=== PATIENT | female | born 1970 | race Caucasian/White ===

== ENCOUNTER 2023-07-11 07:32 | Outpatient (CLI) | payer BC, SELFPAY | END 2023-07-11 07:33 | disposition home or self-care (01) | PROVIDERS: PCP Family Medicine; Visit Provider Family Medicine | DX: E66.3 Overweight (principal); Z13.220 Encounter for screening for lipoid disorders; Z11.59 Encounter for screening for other viral diseases | CPT/HCPCS: 80053; 80061; 84443; 86803 ==

== ENCOUNTER 2023-07-13 09:26 | Outpatient (CLI) | payer BC, SELFPAY | END 2023-07-13 09:27 | disposition home or self-care (01) | LOC: FRMREF 09:27 | PROVIDERS: PCP Family Medicine; Visit Provider Dermatology | DX: R21 Rash and other nonspecific skin eruption (principal) | CPT/HCPCS: 87070; 87186 ==

== ENCOUNTER 2023-11-17 17:29 | Emergency (ER) | payer BC, SELFPAY ==
[2023-11-17 17:36] VITALS: BP 128/83; PULSE 83; RESP 18; TEMP 36; O2SAT 99; BMI 37.6
--- NOTE | 2023-11-17 17:53 | XR_ITS ---
Patient: DEBRA PATEL Facility:?[facility] Patient ID:?[id number] Site Patient ID:?[id number]. Site :?[id number] Study:?XRay-Chest 2 VIEW-11/17/2023 6:30:45 PM Ordering Physician:MARICRUZ Final Report: INDICATION: CHEST PAIN TECHNIQUE: Chest 2 views. COMPARISON: None. FINDINGS: Cardiovascular and mediastinum: Heart size and vasculature are normal in caliber and appearance. Mediastinum is within normal limits. Lungs and pleural spaces: Lungs are clear. No sign of infiltrate or mass. No sign of pleural effusion. No pneumothorax. Bones and soft tissues: No significant findings. IMPRESSION: Unremarkable chest. Dictated by: Chris Gaston MD @ 11/17/2023 19:13:14 Signed by:Mukesh Gaston MD @11/17/2023 7:13:14 PM (Electronic Signature)
--- NOTE | 2023-11-17 17:53 | CT_ITS ---
Patient: DEBRA PATEL Facility:?[facility] Patient ID:?[id number] Site Patient ID:?[id number]. Site :?[id number] Study:?CT-Head W/O-11/17/2023 6:28:50 PM Ordering Physician:MARICRUZ Final Report: INDICATION: Headaches TECHNIQUE: Non-contrast CT of the head is submitted. No comparisons. FINDINGS: The ventricles, sulci and gyri are of normal size, shape and contour. Midline structures are centrally located. No convincing evidence of intra- or extra- axial fluid collections. Mild mucosal thickening within the right maxillary sinus. IMPRESSION: 1. No radiographic evidence of acute intracranial abnormalities. Please note that all CT scans at this facility use dose modulation, iterative reconstruction, and/or weight-based dosing when appropriate to reduce radiation dose to as low as reasonably achievable. Dictated by Darwin Rodriguez MD @ 11/17/2023 6:48:43 PM Signed by:?Darwin Rodriguez MD @11/17/2023 6:48:43 PM (Electronic Signature)
[2023-11-17] MEDS: KETOROLAC 15 MG/ML inj IVP (18:25)
[2023-11-17 18:30] LABS: Basophils Absolute Auto 0.03 K/uL (0.00-0.30); Basophils Percent Auto 0.4 % (0.0-3.0); Eosinophils Absolute Auto 0.28 K/uL (0.00-0.50); Eosinophils Percent Auto 3.5 % (0.0-7.0); Hematocrit 41.5 % (33.0-51.0); Hemoglobin* 13.5 gm/dL (12.0-16.0); Immature Granulocytes Abs Auto 0.01 K/uL (0.00-0.30); Immature Granulocytes Pct Auto 0.1 %; Lymphocytes Percent Auto 44.7 % (20-44); Mean Corpuscular HGB Conc 33 gm/dL (32-36); Mean Corpuscular Hemoglobin 30 pg (26-34); Mean Corpuscular Volume 92 fL (80-100); Monocytes Percent Auto 5.1 % (0.0-11.0); Neutrophils Percent Auto 46.2 % (42.0-72.0); Platelet Count* 364 K/uL (140-440); RDW Coefficient of Variation % 13.8 % (11.5-15.5); Red Blood Count 4.51 m/uL (4.00-5.20); White Blood Count* 8.01 K/uL (4.50-11.00)
[2023-11-17 18:32] LABS: Slide Review Reflex No
[2023-11-17 18:41] LABS: Chloride* 105 mmol/L (96-114)
[2023-11-17 18:42] LABS: Albumin* 4.6 g/dL (3.3-5.0); Sodium* 139 mmol/L (135-149)
[2023-11-17 18:44] LABS: Creatinine* 0.8 mg/dL (0.5-1.5); Est. Creatinine Clearance* 78.18; Estimated Glomerular Filt Rate 88 ml/min
[2023-11-17 18:45] LABS: Alanine Aminotransferase* 43 U/L (4-35); Alkaline Phosphatase* 106 U/L (40-150); Anion Gap 8 mEq/L (7-15); Aspartate Amino Transferase* 35 U/L (12-35); Bilirubin Direct* 0.2 mg/dL (0.0-0.5); Bilirubin Total* 0.3 mg/dL (0.1-1.5); Blood Urea Nitrogen* 16 mg/dL (7-30); Carbon Dioxide* 26 mmol/L (20-32); D Dimer Quantitative* 0.61 ug/ml (0.00-0.50); Glucose* 95 mg/dL (60-115); Total Protein* 7.6 g/dL (6.0-8.3)
[2023-11-17 18:46] LABS: Calcium* 9.7 mg/dL (8.4-10.6)
--- NOTE | 2023-11-17 18:48 | ED_ITS ---
HPI - General Adult General Chief complaint: Chest Pain Stated complaint: Chest pains, headaches Time Seen by Provider: 11/17/23 17:34 Source: patient, RN notes reviewed and old records reviewed Mode of arrival: ambulatory Limitations: no limitations History of Present Illness HPI narrative: Patient is a 53-year-old woman who presents for evaluation primarily of chest pain but also of headaches. She has had chest pain she says for 3 days straight, it waxes and wanes in intensity but has never been completely gone. It does migrate from 1 side of the chest to the other, sometimes upper chest, sometimes lower chest. She has not found anything that relieves it nor anything that makes it worse. Sometimes it hurts to take a deep breath but not always. Sometimes she feels short of breath for moment or 2 but has not felt consistently short of breath. She denies fevers or cough. She does feel like her legs are been a little swollen. She is not on any hormone replacement, did have a hysterectomy at the end of 2021. Her dad has a history of heart surgery and heart attacks. She has no personal history of heart disease, she says years ago she had chest pain and was diagnosed with anxiety. She has been having headaches for the past week and a half for so. She says she has headaches most days although not all day and not every day. They go away with ibuprofen, sometimes she does not even notice that she has a headache because she is busy but then when she stops doing what she is doing she will notice that she has a headache. Headaches as well have been migratory, sometimes temporal, sometimes frontal, sometimes occipital. Not associated with any nausea or vomiting, they do not limit her activities. She sometimes wakes up with a headache but not all the time. No neurologic changes. Saw her primary doctor week ago for headaches, recommendation was made for ibuprofen and follow up if she continued to have problems. She had called clinic today to make a follow-up appointment but was told to come to the ER instead because of the chest pain. She does smoke, drinks occasionally. Denies any drug use. Notes a prior history of depression and anxiety but feels these have been well controlled for the past 5 years or so, does not take any medications for those. Related Data Home Medications Medication Instructions Recorded Confirmed timolol maleate 0.5 % eye drops 1 drp ophthalmic (eye) DAILY 11/10/23 11/10/23 Previous Rx's Medication Instructions Recorded ibuprofen 800 mg tablet 800 mg PO .every 6-8 hrs PRN pain 11/10/23 #60 tabs ropinirole 0.25 mg tablet 0.25 mg PO QHS #30 tabs 11/10/23 Allergies Allergy/AdvReac Type Severity Reaction Status Date / Time Cephalosporins Allergy Unknown Verified 11/10/23 15:11 levofloxacin [From Levaquin] Allergy Unknown Verified 11/10/23 15:11 erythromycin base Allergy Verified 11/10/23 15:11 Penicillins Allergy Verified 11/10/23 15:11 Review of Systems Status of ROS: Reports: 10 or more systems reviewed and unremarkable except as noted in History and below [facility] Medical History Yeast dermatitis ?B37.2 - Candidiasis of skin and nail (ICD-10) Acute maxillary sinusitis ?J01.00 - Acute maxillary sinusitis, unspecified (ICD-10) Family History Father Coronary artery disease Maternal Grandfather Prostate cancer Heart disease Aunt Breast cancer Uncle Heart disease Social History Smoking Status: Current every day smoker How often do you have a drink containing alcohol: monthly or less AUDIT-C Alcohol total score: 1 Non-prescribed substance use: denies use Exam Narrative: Exam Narrative: Vital signs as noted above. In general, an alert, well-appearing patient. Breathing comfortably. Head: Normocephalic, atraumatic. Eyes: Pupils are equal reactive. Extraocular movements are full. Conjunctivae are normal. ENT: Mucous membranes are moist. Throat is normal. No temporal tenderness. Neck: Supple without lymphadenopathy. No meningeal signs. Heart: Regular rate and rhythm. No murmur or rub. Lungs: Clear bilaterally. No increased work of breathing, crackles or wheezes. Abdomen: Soft and nontender. Extremities: Well perfused. Trace pretibial edema bilaterally. No calf tenderness. Pulses intact. Neurologic: Patient is alert and oriented to person and place. Speech is fluent. Face is symmetric. Moves all extremities equally. Affect: Normal. Skin: Warm and dry. Well perfused. Const: Vital Signs, click to edit/add: Vital Signs - 24 hr 11/17/23 17:36 Temperature 96.8 F L Pulse Rate [Pulse Oximeter] 83 Respiratory Rate 18 Blood Pressure [Ri ght Upper Arm] 128/83 Pulse Oximetry 99 Oxygen Delivery Me thod Room Air Documenting provider has reviewed patient's vital signs: yes Course Course ED Course: Following initial evaluation, patient had an EKG which by my review shows a normal sinus rhythm, ventricular rate of 77. No ST segment changes, no T-wave abnormalities. Point of care troponin was 0. Overall my suspicion for acute coronary syndrome is low with 3 days of symptoms, normal EKG and normal troponin. Other diagnostic considerations would include angina, again felt to be somewhat unlikely given constant migratory pain, pneumonia, pneumothorax, pulmonary embolism, chest wall pain, among others. Headaches seem unlikely to be related to an acute intracranial process such as hemorrhage or thrombosis given intermittent nature over the past week and a half. Possibly tension, has had some temporal headaches but no temporal tenderness, I checked a CRP and sed rate these are both normal, doubt giant cell arteritis. I did do a head CT to rule out something unlikely such as mass with surrounding edema, head CT by my review is negative, negative radiology read as well. Metabolic panel was normal, LFTs are normal with the exception of an ALT of 43. CRP was less than 0.5, TSH 1.58. She had a D-dimer 0.61 which is very minimally elevated for age. My pretest probability is fairly low, she does not have consistent pleuritic pain, significant short of breath, hypoxia, tachycardia, risk factors. Overall discussed with her that with that very minimal elevation in D-dimer I do not think the risk benefit factor is likely in favor of doing a CT scan and she is comfortable with that. I have asked her to try scheduled ibuprofen for a few days here, follow-up with primary care next week for recheck and to discuss further testing. Her dad does have a history of heart disease, stress test would not be unreasonable just cross that off. Return at any time for severe symptoms. Vital Signs Vital signs: Initial Vital Signs Temperature 96.8 F L 11/17/23 17:36 Temperature Source Temporal Artery Scan 11/17/23 17:36 Pulse Rate 83 11/17/23 17:36 Pulse Rhythm Regular 11/17/23 17:36 Respiratory Rate 18 11/17/23 17:36 Blood Pressure 128/83 11/17/23 17:36 Blood Pressure Mean 98 11/17/23 17:36 Blood Pressure Position Sitting 11/17/23 17:36 Pulse Oximetry 99 11/17/23 17:36 Oxygen Delivery Method Room Air 11/17/23 17:36 Vital Signs Temperature 96.8 F L 11/17/23 17:36 Pulse Rate 83 11/17/23 17:36 Respiratory Rate 18 11/17/23 17:36 Blood Pressure 128/83 11/17/23 17:36 Pulse Oximetry 99 11/17/23 17:36 Oxygen Delivery Method Room Air 11/17/23 17:36 Temperature 96.8 F L 11/17/23 17:36 Pulse Rate 83 11/17/23 17:36 Respiratory Rate 18 11/17/23 17:36 Blood Pressure 128/83 11/17/23 17:36 Pulse Oximetry 99 11/17/23 17:36 Oxygen Delivery Method Room Air 11/17/23 17:36 Medications Administered Medications: Discontinued Medications Generic Name Dose Route Start Last Admin Trade Name Freq PRN Reason Stop Dose Admin Ketorolac Tromethamine 15 mg 11/17/23 17:52 11/17/23 18:25 Ketorolac 15 Mg/Ml Inj IVP 11/17/23 17:53 15 mg ONCE ONE Administration Medical Decision Making Lab Data Labs: Lab Results 11/17/23 11/17/23 11/17/23 Range/Units 17:54 18:18 18:18 WBC 8.01 (4.50-11.00) K/uL RBC 4.51 (4.00-5.20) m/uL Hgb 13.5 (12.0-16.0) gm/dL Hct 41.5 (33.0-51.0) % MCV 92 (80-100) fL MCH 30 (26-34) pg MCHC 33 (32-36) gm/dL RDW Coeff of Daisy 13.8 (11.5-15.5) % Plt Count 364 (140-440) K/uL Neut % (Auto) 46.2 (42.0-72.0) % Lymph % (Auto) 44.7 H (20-44) % [place] % (Auto) 5.1 (0.0-11.0) % Eos % (Auto) 3.5 (0.0-7.0) % Baso % (Auto) 0.4 (0.0-3.0) % Neut # (Auto) 3.70 (1.7-7.0) K/uL Lymph # (Auto) 3.60 H (0.90-2.90) K/uL [place] # (Auto) 0.40 (0.00-0.90) K/UL Eos # (Auto) 0.28 (0.00-0.50) K/uL Baso # (Auto) 0.03 (0.00-0.30) K/uL Abs Immat Gran (auto) 0.01 (0.00-0.30) K/uL Imm/Tot Granulo (auto) 0.1 % ESR 10 (2-20) mm/hr D-Dimer Quant (PE/DVT) 0.61 H (0.00-0.50) ug/ml Sodium 139 (135-149) mmol/L Potassium 4.0 (3.6-5.1) mmol/L Chloride 105 (96-114) mmol/L Carbon Dioxide 26 (20-32) mmol/L Anion Gap 8 (7-15) mEq/L BUN 16 (7-30) mg/dL Creatinine 0.8 (0.5-1.5) mg/dL Estimated Creat Clear 78.18 Estimated GFR 88 ml/min Glucose 95 (60-115) mg/dL Calcium 9.7 (8.4-10.6) mg/dL Total Bilirubin 0.3 Cancelled (0.1-1.5) mg/dL Direct Bilirubin 0.2 (0.0-0.5) mg/dL AST (12-35) U/L ALT (4-35) U/L Alkaline Phosphatase (40-150) U/L C-Reactive Protein (0.5-1.0) mg/dL Total Protein (6.0-8.3) g/dL Albumin (3.3-5.0) g/dL TSH (0.270-4.200) uIU/mL POC Troponin I 0.00 L (0.01-0.04) ng/ml 11/17/23 11/17/23 11/17/23 Range/Units 18:18 18:18 18:18 WBC (4.50-11.00) K/uL RBC (4.00-5.20) m/uL Hgb (12.0-16.0) gm/dL Hct (33.0-51.0) % MCV (80-100) fL MCH (26-34) pg MCHC (32-36) gm/dL RDW Coeff of Daisy (11.5-15.5) % Plt Count (140-440) K/uL Neut % (Auto) (42.0-72.0) % Lymph % (Auto) (20-44) % [place] % (Auto) (0.0-11.0) % Eos % (Auto) (0.0-7.0) % Baso % (Auto) (0.0-3.0) % Neut # (Auto) (1.7-7.0) K/uL Lymph # (Auto) (0.90-2.90) K/uL [place] # (Auto) (0.00-0.90) K/UL Eos # (Auto) (0.00-0.50) K/uL Baso # (Auto) (0.00-0.30) K/uL Abs Immat Gran (auto) (0.00-0.30) K/uL Imm/Tot Granulo (auto) % ESR (2-20) mm/hr D-Dimer Quant (PE/DVT) (0.00-0.50) ug/ml Sodium (135-149) mmol/L Potassium (3.6-5.1) mmol/L Chloride (96-114) mmol/L Carbon Dioxide (20-32) mmol/L Anion Gap (7-15) mEq/L BUN (7-30) mg/dL Creatinine (0.5-1.5) mg/dL Estimated Creat Clear Estimated GFR ml/min Glucose (60-115) mg/dL Calcium (8.4-10.6) mg/dL Total Bilirubin (0.1-1.5) mg/dL Direct Bilirubin Cancelled (0.0-0.5) mg/dL AST 35 Cancelled (12-35) U/L ALT 43 H Cancelled (4-35) U/L Alkaline Phosphatase 106 (40-150) U/L C-Reactive Protein (0.5-1.0) mg/dL Total Protein (6.0-8.3) g/dL Albumin (3.3-5.0) g/dL TSH (0.270-4.200) uIU/mL POC Troponin I (0.01-0.04) ng/ml 11/17/23 11/17/23 11/17/23 Range/Units 18:18 18:18 18:18 WBC (4.50-11.00) K/uL RBC (4.00-5.20) m/uL Hgb (12.0-16.0) gm/dL Hct (33.0-51.0) % MCV (80-100) fL MCH (26-34) pg MCHC (32-36) gm/dL RDW Coeff of Daisy (11.5-15.5) % Plt Count (140-440) K/uL Neut % (Auto) (42.0-72.0) % Lymph % (Auto) (20-44) % [place] % (Auto) (0.0-11.0) % Eos % (Auto) (0.0-7.0) % Baso % (Auto) (0.0-3.0) % Neut # (Auto) (1.7-7.0) K/uL Lymph # (Auto) (0.90-2.90) K/uL [place] # (Auto) (0.00-0.90) K/UL Eos # (Auto) (0.00-0.50) K/uL Baso # (Auto) (0.00-0.30) K/uL Abs Immat Gran (auto) (0.00-0.30) K/uL Imm/Tot Granulo (auto) % ESR (2-20) mm/hr D-Dimer Quant (PE/DVT) (0.00-0.50) ug/ml Sodium (135-149) mmol/L Potassium (3.6-5.1) mmol/L Chloride (96-114) mmol/L Carbon Dioxide (20-32) mmol/L Anion Gap (7-15) mEq/L BUN (7-30) mg/dL Creatinine (0.5-1.5) mg/dL Estimated Creat Clear Estimated GFR ml/min Glucose (60-115) mg/dL Calcium (8.4-10.6) mg/dL Total Bilirubin (0.1-1.5) mg/dL Direct Bilirubin (0.0-0.5) mg/dL AST (12-35) U/L ALT (4-35) U/L Alkaline Phosphatase Cancelled (40-150) U/L C-Reactive Protein < 0.5 L (0.5-1.0) mg/dL Total Protein 7.6 Cancelled (6.0-8.3) g/dL Albumin 4.6 Cancelled (3.3-5.0) g/dL TSH 1.580 (0.270-4.200) uIU/mL POC Troponin I (0.01-0.04) ng/ml Discharge Plan Discharge Clinical Impression: Headache, Atypical chest pain Patient Disposition: Home, Self-Care Condition: Stable Instructions: Chest Pain (ED), General Headache (ED) Additional Instructions: Your evaluation today is reassuring. I am not finding evidence to suggest that you have had a heart attack, have pneumonia, clots, heart failure, or other concerning causes for chest pain. As we discussed, I am not always able to find a definitive diagnosis in the ER. Follow-up with your primary care would be reasonable to discuss stress testing. With regard to her headache, your head CT is normal, other labs are normal as well. I would continue with ibuprofen for now, discussed further evaluation with primary care. Activity Level: No Restrictions Discharge Diet: Regular Prescriptions: No Action ibuprofen 800 mg tablet 800 mg PO .every 6-8 hrs PRN (Reason: pain) Qty: 60 4RF ropinirole 0.25 mg tablet 0.25 mg PO QHS Qty: 30 3RF timolol maleate 0.5 % drops 1 drp ophthalmic (eye) DAILY Rx Instructions: 1 drop in each eye daily Follow Up/Referrals: Brionna Alanis MD [Primary Care Provider] - Stand Alone Forms: [employer] Info Instructions
[2023-11-17 18:51] LABS: C Reactive Protein* < 0.5 mg/dL (0.5-1.0)
[2023-11-17 19:15] LABS: Erythrocyte SedimentationRate* 10 mm/hr (2-20)
== END 2023-11-17 20:02 | disposition home or self-care (01) ==
PROVIDERS: Emergency Provider Emergency Medicine; PCP Family Medicine
DX: R51.9 Headache, unspecified (principal); R07.89 Other chest pain
CPT/HCPCS: 36415; 70450; 71046; 80048; 80076; 84443; 84484; 85025; 85379; 85651; 86140; 93005; 96374; 99284; 99285; J1885

== ENCOUNTER 2024-01-05 12:56 | Outpatient (CLI) | payer BC, SELFPAY | END 2024-01-05 12:57 | disposition home or self-care (01) | PROVIDERS: PCP Family Medicine; Visit Provider Family Medicine | DX: Z13.228 Encounter for screening for other metabolic disorders (principal); Z13.220 Encounter for screening for lipoid disorders; Z13.21 Encounter for screening for nutritional disorder; Z13.29 Encounter for screening for other suspected endocrine disorder | CPT/HCPCS: 80053; 80061; 82306; 82607; 84443 ==

== ENCOUNTER 2024-01-20 16:56 | Emergency (ER) | payer BC, SELFPAY ==
[2024-01-20 16:59] VITALS: BP 137/70; PULSE 92; RESP 18; TEMP 36.5; O2SAT 96; BMI 37.6
--- NOTE | 2024-01-20 17:23 | CRLHL7_ITS ---
For Patients: As a result of the Century Cures Act, medical imaging exams and procedure reports are released immediately into your electronic medical record. You may view this report before your referring provider. If you have questions, please contact your health care provider. Indication: Right knee pain and swelling Comparison: None available. Technique: Standing AP, lateral, and sunrise views of the right knee were obtained Findings: There is no displaced fracture or dislocation. Mild tricompartmental degenerative changes with medial compartmental narrowing, tibial spine spurring. There is mild suprapatellar joint effusion. Impression: Mild tricompartmental degenerative changes without acute osseous abnormality. Questionable small joint effusion. Dictated by Michael Crisostomo MD @ 01/20/2024 6:06:08 PM (Electronically Signed)
--- NOTE | 2024-01-20 17:40 | ED.LOWEXIN ---
HPI - Extremity Injury (Lower) General Chief Complaint: Extremity Pain/Injury, Lower Stated Complaint: Twisted Right knee at work Time Seen by Provider: 01/20/24 16:59 History of Present Illness HPI Narrative: This 53-year-old female comes in with right knee pain. This occurred earlier today when she was stepping down 1 step she had rather sudden onset of pain in the medial aspect of her right knee. She has subsequently developed swelling in her right knee. She does not describe any other overuse activity or mechanism of injury. She states that she does feel like her knee catches and locks at times. She does not report any instability symptoms. Her pain is located along the medial aspect of her left knee and is reproduced when palpating in this area. Related Data Home Medications ?Medication ?Instructions ?Recorded ?Confirmed timolol maleate 0.5 % eye drops 1 drp ophthalmic (eye) DAILY 11/10/23 01/05/24 Previous Rx's ?Medication ?Instructions ?Recorded ibuprofen 800 mg tablet 800 mg PO .every 6-8 hrs PRN pain 11/10/23 #60 tabs lisdexamfetamine 20 mg capsule 20 mg PO QAM #30 caps 01/05/24 (Vyvanse) Allergies Allergy/AdvReac Type Severity Reaction Status Date / Time Cephalosporins Allergy Unknown Verified 01/05/24 12:18 levofloxacin [From Levaquin] Allergy Unknown Verified 01/05/24 12:18 erythromycin base Allergy Verified 01/05/24 12:18 Penicillins Allergy Verified 01/05/24 12:18 Review of Systems Status of ROS: Reports: 10 or more systems reviewed and unremarkable except as noted in History and below Narrative: Constitutional: No fevers, no weight gain or loss. Eyes: No discharge. No vision changes. HENT: No congestion, no sore throat, no ear pain. Cardiovascular: No chest pain, no palpitations. Respiratory: No shortness of breath, no wheezes, no cough. Gastrointestinal: No abdominal pain, no vomiting, no diarrhea. Genitourinary: No dysuria, no hematuria. Musculoskeletal: Right knee pain and swelling as described above. Skin: No rashes, no pruritis. Neurological: No dizziness, weakness, sensory change, speech change. Endo/Heme/Allergies: No bruising or bleeding. No polydipsia. Pysch: no suicidality, no anxiety, no insomnia. All other systems reviewed and are negative. [facility] Medical History (Updated 01/20/24 @ 18:28 by Eric Mann MD) Headache ?R51.9 - Headache, unspecified (ICD-10) Obsessive-compulsive disorder ?F42.9 - Obsessive-compulsive disorder, unspecified (ICD-10) Surgical History (Updated 01/05/24 @ 12:52 by Brionna Alanis MD) History of tubal ligation ?Z98.51 - Tubal ligation status (ICD-10) History of tonsillectomy ?Z90.89 - Acquired absence of other organs (ICD-10) History of total hysterectomy with bilateral salpingo-oophorectomy (BSO) ?Z90.710 - Acquired absence of both cervix and uterus (ICD-10) ?Z90.722 - Acquired absence of ovaries, bilateral (ICD-10) ?Z90.79 - Acquired absence of other genital organ(s) (ICD-10) Hx of cholecystectomy ?Z90.49 - Acquired absence of other specified parts of digestive tract (ICD-10) Previous section ?Z98.891 - History of uterine scar from previous surgery (ICD-10) History of appendectomy ?Z90.49 - Acquired absence of other specified parts of digestive tract (ICD-10) Family History Father Coronary artery disease Maternal Grandfather Prostate cancer Heart disease Aunt Breast cancer Uncle Heart disease Social History (Updated 01/09/24 @ 08:11 by Janiya Bearden [facility]) What is your current living situation?: I presently have a place to live Problems where you live: no known problems In the past 12 mos, have been you worried that your food would run out before you had money to buy more?: never true In the past 12 mos, the food you bought just didn't last and you didn't have money to buy more?: never true Smoking Status: Current every day smoker How often do you have a drink containing alcohol: monthly or less AUDIT-C Alcohol total score: 1 Non-prescribed substance use: denies use How often does anyone, including family, friends and others, physically hurt you: never How often does anyone, including family, friends and others, insult or talk down to you: never How often does anyone, including family, friends and others, threaten you with harm: never How often does anyone, including family, friends and others, scream or curse at you: never Little interest or pleasure in doing things: not at all Feeling down, depressed, or hopeless: not at all Exam Narrative: Exam Narrative: Constitutional: Well-developed, well-nourished, no acute distress. HEENT: Normocephalic, atraumatic. Neck: Normal range of motion. Nontender. Supple. Heart: Intact distal pulses. Lungs: No chest discomfort. No wheezes, rhonchi, or rales. Abdomen: Nontender. Back: Normal range of motion. Extremities: Diffuse swelling of the right knee with tenderness when palpating on the medial aspect. When attempting to assess her MCL with valgus stress the patient reported distinct pain. There is no obvious ligament instability. Skin: Intact. No rash. Warm. No erythema or pallor. Neurologic: No altered sensation. No weakness. Alert and oriented. Psychiatric: No suicidality. No anxiety or depression. No insomnia. Nursing notes and vitals signs are reviewed. Const: Vital Signs, click to edit/add: Vital Signs - 24 hr 01/20/24 16:59 Temperature 97.7 F Pulse Rate [Right Pulse Oximeter] 92 Respiratory Rate 18 Blood Pressure [Ri ght Forearm] 137/70 Pulse Oximetry 96 Oxygen Delivery Me thod Room Air Course Vital Signs Vital signs: Initial Vital Signs Temperature 97.7 F 01/20/24 16:59 Temperature Source Temporal Artery Scan 01/20/24 16:59 Pulse Rate 92 01/20/24 16:59 Pulse Rhythm Regular 01/20/24 16:59 Pulse Strength 3+ Normal 01/20/24 16:59 Respiratory Rate 18 01/20/24 16:59 Blood Pressure 137/70 01/20/24 16:59 Blood Pressure Mean 92 01/20/24 16:59 Blood Pressure Position Sitting 01/20/24 16:59 Pulse Oximetry 96 01/20/24 16:59 Oxygen Delivery Method Room Air 01/20/24 16:59 Vital Signs Temperature 97.7 F 01/20/24 16:59 Pulse Rate 92 01/20/24 16:59 Respiratory Rate 18 01/20/24 16:59 Blood Pressure 137/70 05/25/24 16:59 Pulse Oximetry 96 01/20/24 16:59 Oxygen Delivery Method Room Air 01/20/24 16:59 Temperature 97.7 F 01/20/24 16:59 Pulse Rate 92 01/20/24 16:59 Respiratory Rate 18 01/20/24 16:59 Blood Pressure 137/70 01/20/24 16:59 Pulse Oximetry 96 01/20/24 16:59 Oxygen Delivery Method Room Air 01/20/24 16:59 MDM - Extremity Injury (Lower) MDM Narrative Medical decision making narrative: This patient has pain in the medial aspect of her right knee with some swelling after stepping down from a step and causing rather sudden onset of pain. The patient is describing some catching and locking symptoms since then. She is able to ambulate. An x-ray of the right knee is obtained and shows no acute findings. The patient is instructed to follow-up with orthopedic clinic for ongoing diagnosis and treatment. She did receive an [employer] prescription for Toradol. Imaging Data XR R Knee: Radiologist's impression: Mild tricompartmental degenerative changes without acute osseous abnormality. Questionable small joint effusion. Discharge Plan Discharge Clinical Impression: Acute knee pain Patient Disposition: Home, Self-Care Condition: Stable Additional Instructions: Take medication as needed and directed. Activity as tolerated. Follow-up with orthopedic clinic for ongoing diagnosis of treatment. Call [phone] for appointment. Prescriptions: No Action ibuprofen 800 mg tablet 800 mg PO .every 6-8 hrs PRN (Reason: pain) Qty: 60 4RF timolol maleate 0.5 % drops 1 drp ophthalmic (eye) DAILY Rx Instructions: 1 drop in each eye daily lisdexamfetamine [Vyvanse] 20 mg capsule 20 mg PO QAM Qty: 30 0RF Follow Up/Referrals: Brionna Alanis MD [Primary Care Provider] - Stand Alone Forms: [email or web address] Info Instructions
--- NOTE | 2024-01-21 10:30 | ED.NURSE ---
Spoke with Chuck pharmacist from [place], clarified Rx was for Toradol.
== END 2024-01-20 19:25 | disposition home or self-care (01) ==
PROVIDERS: Emergency Provider Emergency Medicine Emergency Medical Services; PCP Family Medicine
DX: M25.561 Pain in right knee (principal); X50.1XXA Overexertion from prolonged static or awkward postures, initial encounter
CPT/HCPCS: 73562; 99283; 99284

== ENCOUNTER 2024-03-13 09:24 | Outpatient (CLI) | payer BC, SELFPAY ==
--- NOTE | 2024-04-23 08:52 | W.PM.SLEEP ---
Sleep Study Details Details Interpreting Provider: Madie Date of Sleep Study: 03/13/24 Sleep Study Details: STUDY TYPE:? Home unattended ? BMI:? 39 ORDERING PROVIDER:Clay Alanis INDICATION:? Concerned about sleep apnea ? SLEEP SUMMARY:? 484 minutes monitored RESPIRATORY SUMMARY:? AHI is 9.8 Low oxygen 86 2.6% of study oxygen less than 90% Snoring 96.9% PERIODIC LIMB MOVEMENTS OF SLEEP:? Not recorded CARDIAC:? Range 59-100, mean 74.2 IMPRESSION:? Mild obstructive sleep apnea RECOMMENDATION: If patient is symptomatic treatment options would include CPAP dental appliance and/or airway expansion surgery. Weight loss is also recommended.
== END 2024-03-13 09:25 | disposition home or self-care (01) ==
LOC: SLEEP 09:24
PROVIDERS: PCP Family Medicine; Visit Provider Family Medicine
DX: G47.33 Obstructive sleep apnea (adult) (pediatric) (principal)
CPT/HCPCS: 95806

== ENCOUNTER 2024-04-30 13:55 | Outpatient (CLI) | payer BC, SELFPAY | END 2024-04-30 13:56 | disposition home or self-care (01) | LOC: LKVREF 13:56 | PROVIDERS: PCP Family Medicine; Visit Provider Otolaryngology | DX: G25.81 Restless legs syndrome (principal) | CPT/HCPCS: 82728 ==

== ENCOUNTER 2025-04-14 13:15 | Outpatient (CLI) | payer BC, SELFPAY | END 2025-04-14 13:16 | disposition home or self-care (01) | LOC: FRMREF 13:20 | PROVIDERS: PCP Family Medicine; Visit Provider Physician Assistant Medical | DX: R63.5 Abnormal weight gain (principal); N39.0 Urinary tract infection, site not specified | CPT/HCPCS: 84443; 87086 ==